=== PATIENT | male | born 1980 | race Caucasian/White ===

== ENCOUNTER 2017-05-11 13:56 | Emergency (ER) | payer SELFPAY ==
[2017-05-11 14:11] VITALS: BP 138/90; TEMP 98.6; O2SAT 98
--- NOTE | 2017-05-11 14:38 | RAD ---
EXAM DESCRIPTION: Hand,Left 3 Views CLINICAL HISTORY: crush injury COMPARISON: None. TECHNIQUE: 3 views left. FINDINGS: An oblique fracture of the distal aspect of the second metacarpal is observed. The injury is essentially nondisplaced. Deformity of the distal aspect of the distal phalanx of the second digit is also observed consistent with fracturing. It may be a previous or remote fracture. An orthopedic anchors observed in the distal aspect of the first metacarpal. The exam is otherwise unremarkable. IMPRESSION: 1. Acute oblique fracture of the distal aspect of the second metacarpal is observed. Its essentially nondisplaced. 2. Fracturing of the distal aspect of the distal phalanx of the second digit is observed. The age of this fracture is uncertain. Electronically signed by: Dagoberto Cox MD 05/11/2017 2:37 PM CDT
--- NOTE | 2017-05-11 14:39 | ED.PDOC ---
History of Present Illness - General Chief Complaint: Upper Extremity Injury Stated Complaint: left hand injury Time Seen by Provider: 05/11/17 14:00 Source: patient Exam Limitations: no limitations - History of Present Illness Initial Comments: PT WAS WORKING ON AN AUTO TRANSMISSION AND IT FELL ONTO HIS L HAND. 3 H AGO. PAIN IN L INDEX FINGER. Occurred: just prior to arrival Pain - Upper Extremity: severe: Hand, left Method of Injury: direct blow Improving Factors: immobilization Worsening Factors: movement Allergies/Adverse Reactions: Allergies NO KNOWN ALLERGY Allergy (Verified 05/11/17 14:11) Home Medications: Ambulatory Orders NK [NK] 05/11/17 Review of Systems - Review of Systems Constitutional: States: no symptoms reported EENTM: States: no symptoms reported Respiratory: States: no symptoms reported Cardiology: States: no symptoms reported Gastrointestinal/Abdominal: States: no symptoms reported Genitourinary: States: no symptoms reported Musculoskeletal: States: joint pain, joint swelling Skin: States: no symptoms reported Neurological: States: no symptoms reported Endocrine: States: no symptoms reported Hematologic/Lymphatic: States: no symptoms reported All other Systems: Reviewed and Negative Past Medical History (General) - Patient Medical History Hx Asthma: No - Vaccination History Hx Tetanus, Diphtheria Vaccination: No Hx Influenza Vaccination: No Hx Pneumococcal Vaccination: No - Social History Hx Tobacco Use: Yes Hx Alcohol Use: Yes - occasional Hx Substance Use: No Hx Substance Use Treatment: No - Activities of Daily Living Hospice Agency (if applicable):: None - Female History Patient is a Female of Child Bearing Age (10 -59 yrs old): No Patient : No Family Medical History - Family History Mother Family History: Unknown Physical Exam - Physical Exam General Appearance: Alert, Well Developed Eyes, Ears, Nose, Throat Exam: PERRL/EOMI, normal ENT inspection Neck: non-tender, full range of motion Cardiovascular/Respiratory: regular rate, rhythm, no M/R/G Abdominal Exam: non-tender, no organomegaly Back Exam: normal inspection, no CVA tenderness Shoulder Exam: normal inspection, no evidence of injury Elbow/Forearm Exam: normal inspection, no evidence of injury Wrist Exam: normal inspection, non-tender, no evidence of injury Hand Exam: bone tenderness - L INDEX FINGER TTP ALONG MC, MCP, PROX PHALYNX, PIP JOINT. REMAINED OF WRIST, HAND, FINGER EXAM NEG. , limited ROM, soft tissue tenderness, stiffness Progress - Progress Progress: 05/11/17 15:32 L HAND XRAY SHOWS ACUTE NONDISPLACED OBLIQUE FRX OF DISTAL ASPECT OF 2ND METACARPAL. I SPOKE WITH TIMO YE. HE RECOMMENDED VOLAR SPLINT AND FOR PT TO CALL HIS OFFICE TO SCHEDULE A F/U APPT. I PRESENTED TO PT'S ROOM TO INFORM HIM OF X-RAY AND PLACE A SPLINT BUT HE IS NOT THERE. NURSE MENTIONED PT TOLD HER HE WAS GOING TO STEP OUT FOR A MINUTE AND HE HAS NOT RETURNED. WILL AWAIT HIS RETURN. 05/11/17 15:53 WE GOT AHOLD OF HIS MOTHER. SHE INFORMED US THE PT ELOPED. WE INQUIRED WHY. SHE MENTIONED HE IS INPATIENT AND JUST LEFT. I INFORMED THE MOTHER THAT HE HAS A FRX WHICH NEEDS TO BE SPLINTED AND ALSO THAT PT NEEDS TO CALL DR HUNTER'S OFFICE , ORTHO, FOR CLOSE F/U. I ASKED HER TO INFORM HIM THAT HIS FRX COULD WORSEN AND RESULT IN WORSENED HEALING IF HE DOESN'T GET IT PROPERLY ATTENDED TO TODAY. SHE SAID SHE WOULD INFORM THE PT. Departure - Departure Clinical Impression: Fracture of second metacarpal bone of left hand Disposition: Left Against Medical Advice Departure Forms: ED Discharge - Pt. Copy, Patient Portal Self Enrollment Diet: resume usual diet Activity: other - DO NOT USE THE LEFT HAND UNTIL SEEN BY DR. LISA GREENWOOD. Home Medications: Ambulatory Orders NK [NK] 05/11/17 Additional Instructions: Your left index finger is broken. Please call Dr. Hunter's office today, orthopedic surgery, to schedule a follow-up and further care. You really need a splint placed onto the hand today. Please return to the ER today and we will place the splint.
== END 2017-05-11 15:44 | disposition left against medical advice (07) ==
LOC: ER 13:56
DX: S62.661A Nondisplaced fracture of distal phalanx of left index finger, initial encounter for closed fracture (principal); Z87.891 Personal history of nicotine dependence; W24.1XXA Contact with transmission devices, not elsewhere classified, initial encounter